=== PATIENT | female | born 1935 | race Caucasian/White ===

== ENCOUNTER 2016-08-10 09:37 | Inpatient (IN) ==
[2016-08-10] MEDS ORDERED: TYLENOL PO PRN (10:58)
[2016-08-10] MEDS ORDERED: ZOFRAN IV PRN (10:58)
[2016-08-10] MEDS ORDERED: DUONEB (A & A) INH PRN (10:58)
--- NOTE | 2016-08-10 11:44 | Diag Imaging Result Document ---
PROCEDURE NAME: CHEST-2 VIEWS - 08/10/2016 CHEST X-RAY, 2 VIEWS: 08/10/2016. COMPARISON: None. FINDINGS: There is cardiomegaly. There are small bilateral pleural effusions. There appears to be some adjacent hazy atelectasis in the lung bases but no significant infiltrates. There is severe vascular disease with calcification of the aorta. No visible compression fractures. IMPRESSION: Cardiomegaly. Small bilateral pleural effusions.
[2016-08-10 12:10] LABS: ALLEN TEST YES; BE 4.8 mmoll (-3.0-3.0); BLOOD TYPE ARTERIAL; DRAW SITE R RADIAL; METHB 1.2 % (0.0-1.5); O2(CT) 13.5 mL/dL (15.0-23.0); PCO2(98.6) 49 mmHg (35-45); PO2(98.6) 69 mmHg (60-100); SAMPLE BLOOD; SAO2 95.3 % (95.0-100.0); THB 10.3 g/dL (11.5-17.4)
[2016-08-10 12:11] LABS: MODALITY CANNULA
--- NOTE | 2016-08-10 12:14 | EKG Report ---
Test Performed on : 08/10/2016 11:24:19 AM Test Reason : CP Blood Pressure : / mmHG Vent. Rate : 125 BPM Atrial Rate : 064 BPM P-R Int : 000 ms QRS Dur : 140 ms QT Int : 364 ms P-R-T Axes : 000 -34 -08 degrees QTc Int : 525 ms Atrial fibrillation. with rapid ventricular response. Left axis deviation Right bundle branch block Abnormal ECG No previous ECGs available Confirmed by Carlota COWAN, Smaan Landa ([id number]) on 08/12/2016 5:31:56 PM
[2016-08-10 15:16] LABS: URINE CULTURE NEEDED? NO; URINE MICRO REVIEW NEEDED? NO; URINE SOURCE CLEAN CATCH
[2016-08-10 15:28] LABS: BILIRUBIN URINE NEGATIVE (NEGATIVE); BLOOD URINE NEGATIVE (NEGATIVE); COLOR YELLOW; GLUCOSE URINE NEGATIVE (NEGATIVE); LEUKOCYTES URINE NEGATIVE (NEGATIVE); NITRITE URINE NEGATIVE (NEGATIVE); PH URINE 5.5; PROTEIN URINE NEGATIVE (NEGATIVE); SP GRAVITY URINE 1.019; TURBIDITY URINE CLEAR (CLEAR); UROBILINOGEN URINE NORMAL (NORMAL)
[2016-08-10 15:29] LABS: UR EPITHELIAL CELLS <10 /HPF (<10); URINE BACTERIA NEGATIVE /HPF; URINE RBC <10 /HPF (<10); URINE WBC <10 /HPF (<10)
[2016-08-10 15:31] LABS: UR PROT RANDOM 11.2 mg/dL
[2016-08-10 15:33] LABS: MANUAL DIFF NEEDED? NO
[2016-08-10] MEDS: DUONEB (A & A) INH PRN ×2 (15:38→19:58)
[2016-08-10 15:41] LABS: BASO% 0.2 % (0.0-0.8); EOS# 0.05 X1000 (0.0-0.7); EOS% 0.5 % (0.0-10.0); HEMATOCRIT 32.6 % (37.0-47.0); HEMOGLOBIN 10.1 g/dL (12.0-16.0); IMM GRAN# 0.03 X1000 (0.0-0.04); IMM GRAN% 0.3 % (0.0-0.5); LYMPH# 1.27 X1000 (1.2-3.4); LYMPH% 13.1 % (20.5-51.1); MCH 27.3 PG (27-31); MCV 88.1 FL (81-99); MONO# 0.83 X1000 (0.11-0.59); MONO% 8.5 % (1.7-9.3); MPV 10.4 FL (7.4-10.4); NEUT% 77.4 % (42.2-75.2); PLT 238 X1000 (130-400)
[2016-08-10 16:02] LABS: MAGNESIUM 2.2 mg/dL (1.5-2.7)
[2016-08-10 16:06] LABS: ALBUMIN 3.4 g/dL (3.5-5.0); CALCIUM 8.7 mg/dL (8.8-10.2); POTASSIUM 4.8 mmol/L (3.5-5.1); TOTAL BILIRUBIN 0.32 mg/dL (0.20-1.00); TOTAL PROTEIN 5.7 g/dL (6.3-8.3)
--- NOTE | 2016-08-10 17:20 | Diag Imaging Result Document ---
PROCEDURE NAME: US RENAL 2 (RETROPER) COMPLETE - 08/10/2016 COMPARISON: None. FINDINGS: The left kidney is severely hyperechoic and atrophic. The right kidney is normal in echotexture. The right kidney measures 10.5 x 3.6 x 4.3 cm. Cortex measures 9 mm. The left kidney measures 6.7 x 3 x 3.3 cm. Cortex measures 6 mm. Urinary bladder is collapsed. IMPRESSION: 1. Severe atrophy and hyperechogenicity of the left kidney. 2. Normal appearing right kidney.
--- NOTE | 2016-08-10 22:31 | CONSULTATION ---
DATE OF CONSULTATION: 08/10/2016 REASON FOR ADMISSION: Increased work of breathing with dyspnea on exertion and swelling. REASON FOR CONSULT: Is listed as renal failure with increased lower extremity swelling and shortness of breath. CONSULTING PHYSICIAN: Dr. Luca Milton. HISTORY OF PRESENT ILLNESS: Ms Alford is a 81-year-old white female who was not been seen by our service in the past. She has been managed on an outpatient basis by Dr. Milton for many years and she has not had many difficulties. Subsequently in May, patient stated that she started swelling after taking a prednisone for an eye problem. She reportedly swelled up and has not had any improvement. She states that she has slept in her recliner for many years and does not go to bed but she sleeps well. She has recently had an echocardiogram done on 07/30 which indicated mild to moderate pulmonary hypertension with some mitral and tricuspid regurgitation. It did show that she had an ejection fraction of 65%. Patient states that she has not been told she has any kidney problems. She does have some incontinence in the past. She denies any chest pain. Positive for increased shortness of breath with swelling. She remains on O2. She has trouble to breathe for the last several days. She was treated with metolazone over the weekend per Dr. Milton and was seen in his office today for follow up. Subsequently this has not improved her breathing or her swelling, and he has convinced her to come to the hospital for admission and further treatment. Patient states that she is not happy to be here in the hospital at this time. Her family is at the bedside. She does deny any nausea , vomiting, no diarrhea. No chest pain or palpitations. No fever or chills. PAST MEDICAL HISTORY: Positive for hypertension, diabetes mellitus type 2, chronic anemia, hypothyroidism, osteoarthritis and hypercholesterolemia. PREVIOUS SURGICAL HISTORY: Partial hysterectomy. SOCIAL HISTORY: She is . She lives with her spouse. She is a current every day smoker 1 pack per day for 30 pack year. Denies any alcohol or illicit drug use. FAMILY HISTORY: Positive for pancreatic cancer and lung cancer. HEALTH HISTORY: She does state that she does get a flu shot. She had her last colonoscopy in 2009. REVIEW OF SYSTEMS: Times 10 with pertinent positives listed above in the HPI. ALLERGIES: Listed as penicillin. HOME MEDICATIONS: Aldactazide, Flonase, Symbicort, Synthroid, vitamin D3, Xanax , atenolol, glimepiride, albuterol nebulizer, losartan and lovastatin. VITAL SIGNS: Her current vital signs temperature is 98.4 degrees, blood pressure 112/58, heart rate 108, respirations 17, she is currently on 2 L nasal cannula. Her last recorded saturation was 100%. LABS: Comprehensive is still currently pending. We do not have any results back on that. Her white count is 9.71, hemoglobin 10.1, hematocrit 32.6, with a platelet count of 238,000. D-dimer 0.43, TSH 5.50. We have urinalysis that shows trace proteinuria and urine electrolytes but we do not have any comparison per her serum electrolytes. Her ABGs pH 7.4, CO2 49, PO2 69, bicarb 28.6 on 2 L. Chest x-ray shows small bilateral pleural effusions. EKG shows atrial fibrillation with RVR. Heart rate was noted at 108. PHYSICAL EXAMINATION: General: This is a 81-year-old white female. Head of the bed is fully elevated. She is and in mild to moderate distress with increased work of breathing. She remains on O2. Skin: Warm and dry. HEENT: Normocephalic, atraumatic. Conjunctiva is pink. She has KRISTIAN. Mucous membranes are moist. Neck: Supple. Trachea midline. No JVD at this level of what she is sitting. Cardiovascular: Slightly irregular rate and rhythm. She remains tachycardic. No extra heart sounds are noted. Respiratory: She continues with increased work of breathing. She has diminished breath sounds. No crackles or wheezes noted. Abdomen: Large, round , soft, nontender, positive bowel sounds. Genitourinary: Not inspected. Patient has void. No I's and O's are recorded at this time. Extremities: She has 2 to 3+ lower extremity edema. This appears to be chronic in the last 2-3 months. Noted pulmonary hypertension on her echocardiogram done on 07/31/2016. Neurological: She is alert and oriented x3. ASSESSMENT AND PLAN: 1. We have been consulted for acute kidney injury. We do not have any labs to look at yet. We have ordered urine electrolytes. We will do a comparison in regards with her FENA score. We do had a renal ultrasound that is currently pending. She has no IV fluids infusing at this time. Again, we are awaiting her labs. 2. Fluid volume overload. Patient has failed outpatient metolazone treatment. She continues to have 3+ lower extremity edema. Head of the bed is elevated 90 degrees. She is requiring oxygenation. We will note that her echocardiogram did show mild to moderate pulmonary hypertension which may indicate that she is starting right-sided heart failure. She may possibly require a Cardiology consult during this hospitalization. 3. Electrolytes, acid-base balance. This is currently pending. 4. Anemia. This is low but stable with no need for intervention at this time. I would like to thank you for allowing us to follow with this patient. Data reviewed, discussed with Sheryl Fuller on 08/10/16. I agree with the above assessment and plan of care. rg Dictated by ASHKAN Suárez for Bora Gonzalez MD cc: ASHKAN Suárez MD Timothy P. Weirich, MD [facility]ERSanjay
[2016-08-11] MEDS: DUONEB (A & A) INH PRN ×5 (03:10→19:38)
[2016-08-11 06:36] LABS: ALBUMIN 3.7 g/dL (3.5-5.0); CALCIUM 8.7 mg/dL (8.8-10.2); POTASSIUM 4.6 mmol/L (3.5-5.1)
--- NOTE | 2016-08-11 07:16 | CONSULTATION ---
DATE OF CONSULTATION: 08/10/2016 REQUESTING PHYSICIAN: Luca Milton MD REASON FOR CONSULTATION: Shortness of breath. HISTORY OF PRESENT ILLNESS: Ms. Alford is a 81-year-old white female with ongoing tobacco use, history of diabetes mellitus, history of obesity, who was admitted to the hospital with a several- day history of increasing shortness of breath. The patient reports she began using a nebulizer 3- 4 weeks ago. The patient reports she has had increased difficulty for approximately 6 weeks. 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 She underwent a temporal artery biopsy to rule out temporal arteritis which was negative. Her steroids have subsequent been discontinued. She continued to have increased weight and increased lower extremity edema. Chest x-ray today revealed bilateral pleural effusions. General lab work reveals renal insufficiency with a creatinine of 2.1. She has undergone ultrasound of the kidney which is pending. PAST MEDICAL HISTORY: 1. Presumptive COPD with ongoing tobacco use. 2. Morbid obesity. 3. Recent new onset blindness as per above. 4. Diabetes mellitus for approximately 15 years. 5. Hypertension. 6. Hypothyroidism. 7. Status post bilateral cataract surgery. 8. History of partial hysterectomy. SOCIAL HISTORY: The patient denies significant alcohol use. Ongoing tobacco use as per above. FAMILY HISTORY: Notable for lung cancer in a father and pancreatic cancer in her mother. REVIEW OF SYSTEMS: As noted in the HPI. PHYSICAL EXAMINATION: General: Reveals an obese, white female, on nasal cannula in no acute distress. HEENT: Pupils are equal and reactive. Formal visual felix were not performed. Oropharynx is clear without overt lesions. Neck: Supple. Chest: Reveals scattered wheezing throughout all lung felix. There is decreased breath sounds in both lung bases. Cardiac: Distant heart sounds. Normal S1, normal S2. Abdomen: Obese and soft without appreciable organomegaly. Extremities: Revealed trace to 1+ peripheral edema. LABORATORIES/DIAGNOSTIC DATA: Chest x-ray reveals generous cardiac silhouette with bilateral pleural effusions. Electrolytes: Sodium 141, potassium 4.8, 4.8 chloride 101, bicarbonate 26, BUN 42, creatinine 2.1. ProBNP is significantly elevated at 14,347. Arterial blood gas on 2 L per nasal cannula reveals pH 7.40, pCO2 of 49, PO2 of 69. White blood count 9.7, hemoglobin 10.1, platelet count 238,000. IMPRESSION: A 81-year-old with ongoing tobacco use with shortness of breath. The patient has wheezing on examination along with decreased breath sounds in both bases. The patient has evidence of heart strain likely related to cor pulmonale with marked increase in proBNP. The patient's dyspnea is most likely due to chronic obstructive pulmonary disease with exacerbation along with bilateral foot pleural effusions and probable fluid overload. This may related to systolic or diastolic heart failure or related to her renal failure. The patient has evidence of chronic hypoxemic respiratory failure along with probable acute hypoxemic respiratory failure. She has not undergone an evaluation for sleep apnea. RECOMMENDATIONS: 1. CT scan of the thorax will be performed to rule out underlying airway obstruction and to gauge degree of pleural effusions. 2. Continue oxygen as needed for saturations less than 90%. 3. Routine bronchodilator therapy. 4. Diuretics as tolerated. 5. Smoking cessation/counseling has been performed. 6. Evaluate for home oxygen at the time of discharge. 7. Recommend outpatient evaluation for sleep apnea. 8. Additional recommendations pending hospital course. cc: MD Luca Gomez MD
[2016-08-11] MEDS ORDERED: SYNTHROID PO SCH (09:00)
--- NOTE | 2016-08-11 09:53 | Diag Imaging Result Document ---
PROCEDURE NAME: CT THORAX W/O CONTRAST - 08/11/2016 CT CHEST WITHOUT CONTRAST: COMPARISON: None available. FINDINGS: There is a moderate-sized right effusion and a small left effusion. There is associated bibasilar atelectasis, and there are infiltrates at both lung bases suggesting edema, perhaps, with superimposed pneumonia in the right clinical scenario. There is a small calcified granuloma at the inferior left upper lobe. There is a tiny 4 mm noncalcified nodule in the right lower lobe superiorly that statistically most likely represents a small noncalcified granuloma or inflammatory nodule given its small size. There is a vaguely nodular density that actually probably represents focal scarring involving the anterior aspect of the left upper lobe on image 25 of series 3 measuring up to 6.2 mm. If clinically warranted, consider CT followup. The central vasculature appears prominent suggesting pulmonary venous congestion. There is [id number] cardiomegaly. There is extensive aortic atherosclerotic calcification as well as coronary artery calcification. There is a small calcified subcarinal lymph node indicating prior granulomatous disease. No significant mediastinal fluid collections are appreciated. Limited views of the upper abdomen reveal a large left adrenal mass measuring up to 3.1 x 3.0 cm axially. However, it has a density that is highly compatible with an adrenal adenoma. The partially imaged left kidney is somewhat atrophic. IMPRESSION: 1. Bilateral pleural effusions, largest on the right as described. 2. Bibasilar atelectasis as well as bibasilar infiltrates suggesting pulmonary edema, but superimposed pneumonia is possible in the right clinical scenario. 3. Cardiomegaly. 4. Incidental large left adrenal adenoma. 5. Other incidental/nonacute findings detailed above.
--- NOTE | 2016-08-11 11:22 | PROGRESS NOTE ---
DATE: 08/11/2016 SUBJECTIVE: The patient voices no new complaints. She still has mild to moderate shortness of breath. She denies any palpitations. We discussed the findings from her labs and other studies as well as consult notes. She expressed understanding. PHYSICAL EXAMINATION: Vital Signs: Temperature 98.2 degrees, pulse rate is 114, blood pressure 107/61. Physical Exam: The patient has generally poor air movement but is in no respiratory distress. The crackles and wheezing heard in the bases was not present today. The patient appears to be in an irregular tachycardia at just over 100 beats per minute. LABORATORY: Arterial blood gas showed mild to moderate hypoxemia. Creatinine is 1.9. ProBNP was 00246. TSH was slightly elevated at 5.5. ASSESSMENT AND PLAN: 1. The patient's respiratory status is slightly improved clinically. She had a CT scan without contrast of the thorax this morning. The results on that are pending. Dr. Snowden's consult notes were reviewed. 2. The patient's renal function has been evaluated by Dr. Gonzalez's team. Her creatinine is 1.9. She apparently has an atrophic kidney on 1 side which we did not know about previously. 3. The patient's initial EKG in the hospital showed atrial fibrillation with RVR and she may likely still be in atrial fibrillation. I think it is of note that the other times when I have examined the patient in the office I did not hear anything like atrial fibrillation although her pulse rate was usually in the 90s to 100 range. Due to her breathlessness I did not appreciate that her heart rhythm was irregular at all on previous examinations. I have consulted Dr. Eben Monsivais to review her echocardiogram from 07/30 and to suggest treatment for diuresis, rate control and other parameters which will optimize her cardiovascular function. 4. The patient states that she quit smoking a few days ago and has been fine with that. 5. We are monitoring the patient's blood sugar. 6. We will review home medications and incorporate those which we feel are appropriate. cc: Luca Milton MD
[2016-08-11] MEDS: AMARYL PO SCH (11:23)
[2016-08-11] MEDS ORDERED: CARDIZEM IV ONE (11:54)
[2016-08-11] MEDS: LANOXIN IV SCH ×2 (12:29→14:12)
[2016-08-11] MEDS: LASIX IV SCH ×2 (12:29→23:21)
[2016-08-11] MEDS: LOPRESSOR PO SCH ×2 (12:30→20:59)
[2016-08-11] MEDS: LOVENOX SUBQ SCH (12:30)
--- NOTE | 2016-08-11 13:32 | EKG Report ---
Test Performed on : 08/11/2016 12:39:14 PM Test Reason : dyspnea Blood Pressure : / mmHG Vent. Rate : 132 BPM Atrial Rate : 208 BPM P-R Int : 000 ms QRS Dur : 142 ms QT Int : 350 ms P-R-T Axes : 000 -35 -02 degrees QTc Int : 518 ms Atrial fibrillation. with rapid ventricular response. Left axis deviation Right bundle branch block Abnormal ECG When compared with ECG of 10-AUG-2016 11:24, (Unconfirmed) No significant change was found Confirmed by Carlota COWAN, Saman Landa ([id number]) on 08/12/2016 5:48:04 PM
[2016-08-11] MEDS: CARDIZEM 100 MG/NS 100 MG/100 ML IVPB IV SCH ×2 (14:46→23:21)
--- NOTE | 2016-08-11 16:27 | PROGRESS NOTE ---
DATE: 08/11/2016 SUBJECTIVE: Ms. Alford is currently sitting up in a chair. She states that she is feeling much better than yesterday. She is concerned that everybody is addressing other things for her care other than her swelling which she feels is the most uncomfortable. She does deny chest pain or increased work of breathing. OBJECTIVE: Her most recent vital signs are temperature 98.2 degrees, blood pressure 107/61, heart rate 114, respirations 14. She is on 2 L nasal cannula. Her last recorded saturation is noted at 96%. She has had 300 in. She has had 0 recorded out though she states that she has been voiding. Most recent labs: Sodium 138, potassium 4.6, chloride 100, CO2 26. BUN 41, creatinine 1.9, glucose 118. Anion gap 12. Calcium 8.7, phosphorus 4.4, albumin 3.7. White count 9.7, hemoglobin 10.1, hematocrit 32.6, with a platelet count of 238,000. At as mentioned previously her TSH is 5.5 on admission. Her ABGs pH 7.74, CO2 49, PO2 69, bicarb 28.6. Renal ultrasound again indicates right kidney measuring 10.5, with the left measuring 6.7. She has a FENa score of 1.98%. We had found previous labs that had been sent to our office per Dr. Milton's office with a baseline creatinine of 1.6 in April 2016. PHYSICAL EXAMINATION: General: This is a 81-year-old, white female. She is currently resting in a chair. She is in no acute distress though she does continue somewhat tachypneic. Skin: Warm and dry. HEENT: Normocephalic, atraumatic. Conjunctivae pale. She has KRISTIAN. Her mucous membranes are moist. Neck: Supple. Trachea midline. No JVD. Cardiovascular : Irregular rate and rhythm. She remains slightly tachycardic though she states she feels no palpitations. Lungs: These are actually improved. She is clear to auscultation anterior. She does have some faint expiratory wheezes posteriorly. She remains on O2. Equal excursion. Abdomen: Large, round, obese, soft, nontender. Positive bowel sounds. Genitourinary: Not inspected. Patient states that she has been getting up to the bathroom to void. We have requested that she keep an accurate I and O. Extremities: She continues with 2 to 3+ lower extremity edema. No clubbing or cyanosis. Integumentary: No rashes or lesions are noted. Neurological: Alert and oriented x3. ASSESSMENT AND PLAN: 1. Acute kidney injury on chronic kidney disease stage 3. It is noted patient' s baseline creatinine is 1.6 as of April 2016. Her creatinine has improved since her hospitalization. It is now down to 1.9. US with small nonfunctional right kidney and marginally small left (10cm). Likely CKD from vascular disease with overlying IRA from prerenal factors ( cardiac decompensation). rg 2. Electrolytes remain stable. Acid-base balance. This is stable. 3. Anemia. This remains stable. 4. Fluid volume overload. We have read Dr. Snowden's consult and we appreciate his input. Consider the patient may have sleep apnea with a scheduled possible outpatient workup. 5. Atrial fibrillation. Dr. Rabago is now following. This was found on EKG subsequently. As noted she has pulmonary hypertension on a previous echocardiogram which may be contributing to her fluid volume overload also. I would to thank you for allowing us to follow with this patient. Seen, data reviewed, discussed with Sheryl Fuller on 08/11/16. I agree with the above assessment and plan of care. rg Dictated by ASHKAN Suárez for Bora Gonzalez MD cc: ASHKAN Suárez MD Timothy P. Weirich, MD [facility]anjay
--- NOTE | 2016-08-11 17:08 | CONSULTATION ---
DATE OF CONSULTATION: 08/11/2016 CHIEF COMPLAINT: Irregular heart beat and shortness of breath. HISTORY OF PRESENT ILLNESS: Ms. Alford is a 81-year-old female patient of Dr. Milton who stated that for the past 2 months she has been experiencing increasing swelling of her lower extremities lately associated with increasing exertional dyspnea. The patient went on to have a 2D echocardiogram on 07/31/2016. At that the time of that echocardiogram according to my own review of the study she appeared to be already in atrial fibrillation. Dr. Milton put her on some extra doses of diuretics to try to decrease her peripheral edema, however this did not work. She continued to be short of breath and she ended up being admitted to the hospital yesterday, 08/10/2016. The patient had a CT scan of the chest obtained yesterday that showed extensive bilateral pleural effusions with the largest on the right. There are bibasilar atelectases and bibasilar infiltrates suggesting pulmonary edema. She has cardiomegaly. She has extensive aortic calcification almost like a porcelain aorta at the level of the arch. She also has extensive coronary artery calcification. Additional findings include blood work that shows a proBNP of 14,340. Her BUN and creatinine were elevated at 42 and 2.1. Sodium and potassium were normal. Her pO2 on 2 L nasal cannula is 69, pCO2 is 49, and pH is 7.40. Hemoglobin is 7.1. The patient has been admitted because of the physical findings of congestive heart failure. In addition, they noted an irregular pulse and they did an EKG at 11:24 a.m. on 08/10/2016 that shows atrial fibrillation with a rapid response rate of 125, right bundle branch block, and a left anterior fascicular block. The patient has atrial fibrillation which is of new onset. She denies having chest pain. She denies having palpitations or syncope. She only admits to the swelling and the progressive dyspnea. She says that she sleeps on a reclining chair and she probably snores. PAST MEDICAL HISTORY: Her past history is positive for hypertension for a long time and diabetes mellitus type 2. She is morbidly obese with a BMI of 40.1. She has hypothyroidism, hyperlipidemia, chronic anemia, and osteoarthritis of the back and legs. PAST SURGICAL HISTORY: She has had a partial hysterectomy. SOCIAL HISTORY: She is and lives in her home. She has 3 grown-up children. She has been a smoker of half a pack to 1 pack a day of cigarettes for many years. She smoked her last on this past Wednesday. FAMILY HISTORY: Pancreatic cancer and lung cancer. HOME MEDICATIONS: Include lovastatin 40 mg at bedtime, losartan 50 mg daily, ipratropium albuterol 3 mL twice a day, glimepiride 4 or 5 mg daily, atenolol 100 mg daily, alprazolam at bedtime, Cholecalciferol 1,000 units daily, levothyroxine 1 tablet 5 days a week , fluticasone, and spironolactone HCTZ 25-25 daily. ALLERGIES: Penicillin. REVIEW OF SYSTEMS: The patient has poor functional capacity. She is chronically tired. She has been getting more short of breath lately. More swelling lately. No chest pain. PHYSICAL EXAMINATION: VITAL SIGNS: Blood pressure is 113/74, pulse 125, temperature 97.3, and respirations 22. GENERAL: She is obese, alert, awake, and in no distress. HEENT: No obvious jugular venous distention. No cervical bruits. RESPIRATORY: The chest shows markedly diminished breath sounds bilaterally with dullness to percussion at both bases. Some occasional scattered rales noted. CARDIOVASCULAR: Heart sounds are slightly irregularly irregular and distant. No gallop or murmur is noted. GASTROINTESTINAL: The abdomen is obese and nontender. No masses or hepatomegaly. No hernia. EXTREMITIES: The extremities show 2+ edema bilaterally with markedly diminished pulses. No lesions or rash noted. NEUROLOGICAL: She moves all extremities and follows commands. She has no obvious deficits. IMPRESSION: 1. Patient presenting with congestive heart failure. This is probably diastolic heart failure, chronic with acute component. Her echocardiogram dated 07/31/2016 showed a preserved ejection fraction in the range of 65%. 2. Patient probably has significant coronary artery disease based on extensive coronary calcification noted on the CT of the chest. 3. Atrial fibrillation with a rapid response. 4. Acute on chronic renal dysfunction. Of note, the patient has had an ultrasound of the kidneys on 08/10/2016 that shows that her left kidney is severely atrophic and hyperechogenic. The right kidney is normal. 5. She has an incidental finding of an adrenal adenoma. 6. Morbid obesity. 7. Patient is likely carrier of sleep apnea syndrome. 8. Diabetes mellitus type 2. 9. Long-term tobacco user. RECOMMENDATIONS: In addition to advising the patient to quit smoking immediately we will suggest to move her to [facility] for IV Cardizem, IV or oral digoxin, low dose metoprolol by mouth, and IV diuretics. The patient is going to need aggressive diuresis to return her to a euvolemic state. Further advice will be forthcoming. Thank you again for the opportunity to participate in her evaluation. cc: MD Luca Topete MD [facility]
[2016-08-11] MEDS: MEVACOR PO SCH (20:59)
[2016-08-11] MEDS: XANAX PO SCH (20:59)
[2016-08-12] MEDS: LOPRESSOR PO SCH ×3 (03:09→17:40)
[2016-08-12] MEDS: DUONEB (A & A) INH PRN ×4 (03:39→15:30)
[2016-08-12] MEDS: SYNTHROID PO SCH (06:10)
[2016-08-12 06:35] LABS: ALBUMIN 3.6 g/dL (3.5-5.0); CALCIUM 9.1 mg/dL (8.8-10.2); POTASSIUM 4.2 mmol/L (3.5-5.1)
--- NOTE | 2016-08-12 07:30 | Diag Imaging Result Document ---
PROCEDURE NAME: HEAD W/O CONTRAST - 08/12/2016 CT BRAIN WITHOUT CONTRAST: FINDINGS: Mildly depressed left nasal fracture. Small frontal scalp soft tissue swelling. No parenchymal hemorrhage. No epidural or subdural hematoma. No subarachnoid hemorrhage. No skull fracture. No hydrocephalus. No mass identified on this noncontrasted exam. No sinus opacification. IMPRESSION: 1. Mild frontal soft tissue swelling with a left nasal fracture. Age indeterminate. 2. No intracranial injury. A preliminary report was given at 5:23 a.m.
[2016-08-12] MEDS: LANOXIN PO SCH (09:23)
[2016-08-12] MEDS: AMARYL PO SCH (09:23)
--- NOTE | 2016-08-12 09:27 | PROGRESS NOTE ---
DATE: 08/12/2016 SUBJECTIVE: The patient states that she lost a lot of fluids yesterday. She states that she had 2 incontinent voids which were not recorded. She states that her swelling is going down and her breathing is a little bit better. The patient fell yesterday trying to hurry and get to the bathroom. According to the CT of the head, she had a nasal fracture on the left side, but no other intracranial injury. OBJECTIVE: Vital Signs: 97.7, pulse rate is 110, blood pressure 132/53. General: The patient has generally poor air movement. There is no wheezing, slightly decreased breath sounds in the bases. Cardiovascular exam: Reveals an irregularly irregular rhythm at approximately 100-110 beats per minute. This is confirmed by telemetry. Extremities: The patient still has 2+ edema, but is not as tense as it was upon presentation. Neurologic: Patient is alert, oriented, conversive and appropriate. ASSESSMENT AND PLAN: 1. The patient's diastolic congestive failure and new onset atrial fibrillation are being addressed. We will need to maintain some type of rate control prior to discharge. The patient is on Lovenox. She is being diuresed with IV Lasix and seems to be putting out quite a bit of urine. 2. Patient's chronic obstructive pulmonary disease is at baseline and stable. We will continue present smoking cessation, which hopefully will stick in her case. 3. The patient's single functioning kidney and chronic renal insufficiency are stable with a creatinine of 2.0 after diuresis. We will continue to monitor this closely. 4. The patient's nasal fracture and fall are noted and we will continue to observe in this capacity. cc: Luca Milton MD
[2016-08-12] MEDS: LASIX IV SCH ×2 (12:25→23:47)
[2016-08-12] MEDS: LOVENOX SUBQ SCH (12:25)
--- NOTE | 2016-08-12 13:31 | PROGRESS NOTE ---
DATE: 08/12/2016 SUBJECTIVE: Ms. Alford is resting quietly in bed. She continues to complain of some swelling though she states that she is feeling just slightly better. She is now in the [facility] being monitored for an irregular heart pattern. OBJECTIVE: Her most recent vital signs, temperature 97.6 degrees, last blood pressure 133/64, heart rate 102, respirations are 20. She is currently on 2 L nasal cannula. Last recorded saturation is 95%. She has had 674 in, she has had 1500 out void. LABS: Sodium 138, potassium 4.2, chloride 95, CO2 3.3 BUN 42, creatinine 2, glucose 83. Her anion gap is 10, calcium 9.1, phosphorus 4.8, albumin 3.6, magnesium of 2. Previous hemoglobin 10.1 on the . PHYSICAL EXAMINATION: General: This is a 81-year-old, white female. She is currently resting in bed. Head of the bed was completely elevated at 90 degrees. Skin: Warm and dry. HEENT: Normocephalic, atraumatic. Conjunctivae pale. She has KRISTIAN. Mucous membranes moist. Neck: Supple. Trachea midline. No JVD. Cardiovascular: Irregular rate and rhythm. She is slightly tachycardic from 80s to low 100s today on her monitor. Lungs: Clear to auscultation anteriorly. Equal excursion. Abdomen: Large, round, soft, nontender. Positive bowel sounds. Genitourinary: Not inspected. Patient is voiding adequate amount. Extremities: She continues with 2+ lower extremity edema. No clubbing or cyanosis. Integumentary: No rashes or lesions evident. Neurological: Alert and oriented x3. ASSESSMENT AND PLAN: 1. Acute kidney injury on chronic kidney disease stage 4 with a baseline creatinine of 1.6. Patient is currently being monitored for irregular heart pattern. She is on diuretics. Her creatinine is remaining stable. We will continue to monitor. 2. Electrolytes and acid-base balance. These remain stable. 3. Anemia. This remains low but stable. 4. Fluid volume overload. She is being monitored with diuretic therapy by Cardiology. 5. Atrial fibrillation. Again she is on monitor on the [facility] with a Cardizem drip. I would like to thank you for allowing us to follow with this patient. Seen, data reviewed, discussed with Sheryl Fuller on 08/12/16. I agree with the above assessment and plan of care. rg Dictated by ASHKAN Suárez for Bora Gonzalez MD cc: ASHKAN Suárez MD Timothy P. Weirich, MD [facility]
[2016-08-12] MEDS: CARDIZEM 100 MG/NS 100 MG/100 ML IVPB IV SCH ×3 (17:39→19:15)
[2016-08-12] MEDS: CARDIZEM PO SCH ×3 (17:40→21:46)
--- NOTE | 2016-08-12 18:27 | PROGRESS NOTE ---
DATE: 08/12/2016 CHIEF COMPLAINT: Swelling, shortness of breath, irregular heartbeat. SUBJECTIVE: Ms. Alford is still swollen, still somewhat short of breath, not as bad. Her heart rate appears to be better controlled on present doses of diltiazem and beta-blockers as well as digoxin. OBJECTIVE: Vital signs: Temperature 97.8, pulse 71 and going up to 100, respirations 21, blood pressure 127/64. General: She is awake, alert, in good mood. HEENT: Unremarkable. Chest: Shows slight wheezes. Diminished breath sounds diffusely. Cardiac: Heart sounds are irregularly irregular without gallop or murmur. Abdomen: Obese. Extremities: Showed 1+ to 2+ edema. Neurologic: Awake, alert and oriented x3. Moves four extremities. LABORATORY DATA: Sodium 138, potassium 4.2, BUN 42, creatinine 2.0. IMPRESSION: 1. Patient who presented with atrial fibrillation with rapid response. 2. Congestive heart failure, diastolic dysfunction. 3. Suspected significant coronary heart disease, calcification of coronary arteries noted on CT of the chest. 4. Morbid obesity. 5. Acute on chronic renal insufficiency. RECOMMENDATIONS: At this point in time, we will continue with IV Lasix at 80 mg every 12 hours. We will put her on diltiazem 30 every 6 hours. Continue digoxin 0.125 daily. We will increase her metoprolol to 25 every 8 hours. We will see how she does over the next couple of days. Consideration may be given at performing a transesophageal echocardiogram on her and a cardioversion maybe in 3 or 4 days once she is more euvolemic and, once we get her into sinus rhythm, consider long-term anticoagulation. At this point in time, she is already on enoxaparin. I would suggest to perhaps start low-dose amiodarone in anticipation of possible cardioversion at some point. Further intervention will depend on her clinical course. cc: MD Luca Topete MD
[2016-08-12] MEDS: MEVACOR PO SCH (21:46)
[2016-08-12] MEDS: XANAX PO SCH (21:46)
[2016-08-12] MEDS: CORDARONE PO SCH (21:46)
[2016-08-13] MEDS: LOPRESSOR PO SCH ×3 (01:55→20:54)
[2016-08-13] MEDS: CARDIZEM PO SCH ×4 (01:55→20:54)
[2016-08-13 05:43] LABS: ALBUMIN 3.4 g/dL (3.5-5.0); CALCIUM 8.9 mg/dL (8.8-10.2)
[2016-08-13] MEDS: SYNTHROID PO SCH (06:06)
[2016-08-13] MEDS: CARDIZEM 100 MG/NS 100 MG/100 ML IVPB IV SCH ×2 (06:06→15:44)
[2016-08-13] MEDS: DUONEB (A & A) INH PRN (07:47)
[2016-08-13] MEDS: LANOXIN PO SCH (09:15)
[2016-08-13] MEDS: CORDARONE PO SCH ×2 (09:15→20:54)
[2016-08-13] MEDS: AMARYL PO SCH (09:15)
[2016-08-13] MEDS: LASIX IV SCH ×2 (09:16→20:54)
--- NOTE | 2016-08-13 11:31 | PROGRESS NOTE ---
DATE: 08/13/2016 SUBJECTIVE: Ms. Alford is resting quietly on the side of the bed. Her legs are dependent. She is reading the paper. She denies chest pain or increased work of breathing. She thinks that her swelling to her lower extremities is doing better. OBJECTIVE: Vital Signs: Her most recent vital signs are temperature is 98.4 degrees, blood pressure 137/40, heart rate 84, respirations 20. She is on 2 L nasal cannula. Last recorded saturation 93%. LABS: Sodium 138, potassium 4, chloride 90, CO2 37, BUN 41, creatinine 2. Glucose 112. Her anion gap is 11. Her calcium is 8.9, phosphorus 5, albumin 3.4. Previous hemoglobin 10.1 on the . Patient shows a C-reactive protein claudication of 12.5 on yesterday's lab results. PHYSICAL EXAMINATION: General: This is a 81-year-old, white female. She is in no acute distress. Skin: Warm and dry. HEENT: Normocephalic, atraumatic. Conjunctiva is pale. She has pupils equal, round, and reactive to light. Mucous membranes moist. Neck: Supple. Trachea midline. No jugular venous distention. Cardiovascular: Regular rate and rhythm. She is with irregular rate and rhythm. She remains slightly tachycardic. She is without murmur or gallop. Lungs: Clear to auscultation anteriorly. Equal excursion, with faint bibasilar posterior crackles. Abdomen: Large, round, soft, nontender. Positive bowel sounds. Extremities: Has 2+ edema. She continues with redness noted to the lower extremities. No rashes or lesions evident. Neurological: Alert and oriented x3. ASSESSMENT AND PLAN: 1. Acute kidney injury on chronic kidney disease, stage 4, with a baseline creatinine of 1.6. Overlying rise in creatinine related to decompensated cardiac disease. Labs are stable as she is diuresing. rg 2. Electrolytes and acid-base balance. These are stable. 3. Anemia. This remains low, but stable. 4. Fluid volume overload. Patient continues to receive diuretic therapy. 5. Atrial fibrillation. She continues on Cardizem drip. Cardiology following. I would to thank you for allowing us to follow with this patient. Seen, data reviewed, discussed with Sheryl Fuller on 08/13/16. I agree with the above assessment and plan of care. rg Dictated by ASHKAN Suárez for Bora Gonzalez MD cc: ASHKAN Suárez MD [facility] Weirich, MD [facility]an[facility]
--- NOTE | 2016-08-13 12:20 | PROGRESS NOTE ---
DATE: 08/13/2016 SUBJECTIVE: The patient is awake and sitting on the edge of the bed. She has no new complaints other than the frequency of urination that she has been experiencing. OBJECTIVE: Vital Signs: 98.4, 84, 137/40, 93% saturated on 2L nasal cannula. Fluid Balance: - 2126 with incontinent voids noted. General: The patient's breathing is smoother. She has some faint crackles in the left base with poor to fair air movement, which is her baseline. She is not wheezing. Cardiovascular: Irregular with overall decreased heart rate. recreation center director shows atrial flutter with atrial fibrillation and generally lower heart rates than yesterday. LABORATORY: Creatinine is 2.0. ASSESSMENT AND PLAN: 1. The patient's diastolic failure in the face of new onset of atrial fibrillation is being treated by Dr. Monsivais. Her heart rate is down significantly and it appears she is having more runs of a much better tolerated atrial flutter rhythm. We will continue amiodarone and diltiazem. Hopefully, she can be weaned off drips soon, and may be home by this weekend at some point. 2. The patient's chronic obstructive pulmonary disease is stable. 3. Kidney function is stable at 2.0. We will continue to monitor this through her period of diuresis. 4. Fall with nasal fracture noted. cc: Luca Milton MD
[2016-08-13] MEDS: LOVENOX SUBQ SCH (14:04)
[2016-08-13] MEDS: MEVACOR PO SCH (20:54)
[2016-08-13] MEDS: XANAX PO SCH (23:35)
[2016-08-14] MEDS: CARDIZEM PO SCH ×4 (02:57→20:24)
[2016-08-14] MEDS: CARDIZEM 100 MG/NS 100 MG/100 ML IVPB IV SCH (03:32)
[2016-08-14 05:50] LABS: ALBUMIN 3.8 g/dL (3.5-5.0); CALCIUM 9.4 mg/dL (8.8-10.2); MAGNESIUM 1.8 mg/dL (1.5-2.7)
[2016-08-14] MEDS: SYNTHROID PO SCH (06:07)
[2016-08-14] MEDS: DUONEB (A & A) INH PRN ×2 (07:52→21:15)
--- NOTE | 2016-08-14 08:29 | Diag Imaging Result Document ---
PROCEDURE NAME: CHEST-PORTABLE - 08/14/2016 SINGLE FRONTAL RADIOGRAPH OF THE CHEST: COMPARISON: 08/10/2016. FINDINGS: Small bilateral pleural effusions are again noted. They are essentially stable or, perhaps, marginally improved. Adjacent atelectasis and/or infiltrates at the lung bases appear to have improved, at least on the right. No new consolidations identified. Cardiac silhouette is stable. IMPRESSION: Suggestion of marginal improvement of the small pleural effusions and bibasilar atelectasis and/or infiltrate.
[2016-08-14] MEDS: LOPRESSOR PO SCH ×2 (09:17→20:24)
[2016-08-14] MEDS: AMARYL PO SCH (09:17)
[2016-08-14] MEDS: CORDARONE PO SCH ×2 (09:17→20:24)
[2016-08-14] MEDS: LASIX IV SCH ×2 (09:18→20:24)
[2016-08-14] MEDS ORDERED: DULCOLAX PO ONE (10:35)
[2016-08-14] MEDS ORDERED: DULCOLAX PR PRN (10:35)
[2016-08-14] MEDS: AFRIN NASAL SPRAY NAS SCH (11:12)
--- NOTE | 2016-08-14 11:59 | PROGRESS NOTE ---
DATE: 08/14/2016 SUBJECTIVE: The patient is sitting in bed. She is comfortable. She has no trouble breathing from a respiratory standpoint, although she states that her nose has been stopped up for multiple days and she can get a good breath through the nasal cannula. She also states she has not had a bowel movement since she got to the hospital. We discussed her activity level and I think it is fine for her to walk around in the room or in the halls and she may take her off oxygen for that. PHYSICAL EXAMINATION: Vital Signs: Temperature 97.7, pulse 77, respirations 22, 128/47, 97% saturated on 3 L nasal cannula. Fluid balance reflects positive fluid gain which makes very little sense since the diuretic has not been changed. I would question the validity of the recorded amount. T Lungs: Clear. Fair to average air movement. No wheezing. Extremities: Show decreasing edema. Cardiovascular: Irregularly irregular, approximately 80 beats per minute. Neurological: She is alert, oriented, conversive, and appropriate. LABORATORIES: Creatinine is still 2.0. ASSESSMENT AND PLAN: 1. The patient's atrial fibrillation and respiratory status has improved dramatically. I think her overall plan is to continue her anti rhythmic and rate control agents as well as diuresis and then hopefully on Wednesday we can have a GISEL followed by DC cardioversion per cardiology. We will continue her Lovenox at the present time. 2. We will write orders to effect a bowel movement. 3. I will plan to add oxymetazoline nasal spray so that she can take a better breath. 4. Patient's COPD is stable. cc: Luca Milton MD
[2016-08-14] MEDS: LOVENOX SUBQ SCH (13:59)
--- NOTE | 2016-08-14 14:26 | PROGRESS NOTE ---
DATE: 08/14/2016 SUBJECTIVE: Patient resting in bed. She states that she has been ambulatory. She is in no acute distress. OBJECTIVE: Vital Signs: Temperature 97.7 degrees, pulse 77, respiratory 22, blood pressure 128/47. Intake 1.3 L. Output 1 L plus voided. PHYSICAL EXAMINATION: General: Elderly female, resting in bed. No acute distress. HEENT: Normocephalic, atraumatic. Oral mucosa moist. Neck: Supple. No JVD. Cardiovascular: Regular rate and rhythm with a systolic murmur. Pulmonary: Equal excursion. She is on O2 supplementation via nasal cannula. She has no increased work of breathing and is clear. Abdomen: Soft, with positive bowel sounds. : She is voiding. Extremities: She has trace pretibial edema. No clubbing, cyanosis. She is moving all extremities and is ambulatory. Integumentary: Skin is pale, warm and dry. LAB DATA: Sodium 136, potassium 4.0, CO2 40, BUN 42, creatinine 2.0, albumin 3.8. ASSESSMENT AND PLAN: 1. Acute kidney injury. Creatinine is essentially unchanged over the course of the hospitalization secondary to her chronic diuresis needs. She has been transitioned from IV to p.o. We would expect to start seeing some improvement with her creatinine thereafter. 2. Electrolytes, acid-base balance. These have been stable. She is slightly alkalotic, expected. 3. Fluid volume. She is on appropriate therapy. 4. Atrial fibrillation. Followed by primary. Seen, data reviewed, discussed with Velvet Lopez on 08/14/16. I agree with the above assessment and plan of care. rg Dictated by ASHKAN Johnson for Bora Gonzalez MD cc: MD Luca Bassett MD [facility]
[2016-08-14] MEDS: MEVACOR PO SCH (20:24)
[2016-08-14] MEDS: XANAX PO SCH (23:10)
[2016-08-15] MEDS: AFRIN NASAL SPRAY NAS SCH ×2 (05:04→14:18)
[2016-08-15] MEDS: SYNTHROID PO SCH (06:24)
[2016-08-15 07:26] LABS: ALBUMIN 3.5 g/dL (3.5-5.0); CALCIUM 9.2 mg/dL (8.8-10.2); POTASSIUM 4.6 mmol/L (3.5-5.1)
[2016-08-15] MEDS: DUONEB (A & A) INH PRN ×4 (08:05→19:16)
[2016-08-15] MEDS: AMARYL PO SCH (08:30)
[2016-08-15] MEDS: CORDARONE PO SCH ×2 (08:30→21:12)
[2016-08-15] MEDS: LOPRESSOR PO SCH ×2 (08:31→21:12)
[2016-08-15] MEDS: CARDIZEM CD PO SCH (08:31)
--- NOTE | 2016-08-15 08:53 | PROGRESS NOTE ---
DATE: 08/15/2016 SUBJECTIVE: The patient was transferred to the floor yesterday. She did not get up and move around much. She states that she got a little bit wheezy overnight and had to have a breathing treatment. She states her nose is still stopped up. She has theorized that an old injury to her nose has been exacerbated by a recent fall and nasal fracture, and that is one of the reasons why she is not able to move air well through her nose. Clinically, I think the oxymetazoline actually did help her. OBJECTIVE: Vital Signs: 97.3, 75, 25, 123/65. Fluid balance: Fluid balance indicates a slight negative fluid balance, although I find it hard to believe that those numbers are reflective of the total ins and outs throughout the day. She did have a bowel movement. General: On physical exam, the patient has faint expiratory wheezes on the right side with baseline air movement. She is in no distress. Cardiovascular: Irregularly irregular, approximately 80 beats per minute. Peripheral edema is stable, if not reduced. Neurologic: The patient is alert, oriented, conversive and appropriate. ENT: It is noted the patient has developed worsening ecchymosis around the eyes at the site of her nasal fracture, most likely exacerbated by her Lovenox therapy. LABORATORY: BUN is 50, creatinine 2.3, both elevated. Blood sugar is 132. ASSESSMENT AND PLAN: 1. The patient has atrial fibrillation with diastolic acute congestive heart failure, stable. I think we have currently squeezed her kidney about as far as we can, and I plan to hold the Lasix today as a result of elevations of BUN and creatinine. I do not think ins and outs are kept properly. 2. Patient's chronic obstructive pulmonary disease is stable. She is wheezing a little bit more today, but is in no distress. There will be no change in therapy. 3. The patient's diabetes is stable. 4. Ecchymosis with nasal fracture is noted. Overall plan is hopefully for GISEL and cardioversion on Wednesday. There have been no notes left in the computer by cardiology in a few days. I have not had the opportunity to review the paper chart. cc: Luca Milton MD
--- NOTE | 2016-08-15 13:24 | PROGRESS NOTE ---
DATE: 08/15/2016 SUBJECTIVE: Patient resting in bed. No complaints this morning. She is waiting for Wednesday when she will have a GISEL. OBJECTIVE: Vital signs: Temperature 97.3, pulse 75, respiratory rate 25, blood pressure 125/65, intake 400 mL, output 500. General: Elderly female resting in bed. No acute distress. HEENT: Normocephalic, atraumatic. Oral mucosa moist. Neck: Supple. No JVD. Cardiovascular: Regular rate and rhythm. Systolic murmur noted. Pulmonary: Equal excursion. Clear bilaterally. Abdomen: Soft, positive bowel sounds. Genitourinary: She is voiding. Extremities: No pretibial edema. No clubbing or cyanosis. Is ambulatory. Integumentary: Skin is warm and dry. She does have some ecchymosis around her eyes from previous. LABORATORY DATA: Sodium 138, potassium 4.6, CO2 43, BUN 50, creatinine 2.3, calcium 9.2, phosphorus 3.5, albumin 3.5. ASSESSMENT AND PLAN: 1. Acute kidney injury. Creatinine is slightly higher than yesterday. Her intake and output have been somewhat decreased. She continues to have no absolute indications for dialysis. Continue to monitor her over the weekend. 2. Electrolytes/acid-base balance. These are acceptable. She remains alkalotic secondary to previous diuretic use. 3. Fluid volume. She is balanced although her intake and output have been down somewhat overnight. 4. Atrial fibrillation, followed by Primary/Cardiology. She is to have a transesophageal echocardiogram on Wednesday as we understand. Dictated by ASHKAN Johnson for Bora Gonzalez MD Data reviewed, discussed with Kenney on 08/15/16. I agree with the above assessment and plan of care. cc: MD Luca Bassett MD MTDD
[2016-08-15] MEDS: LOVENOX SUBQ SCH (14:18)
--- NOTE | 2016-08-15 18:50 | PROGRESS NOTE ---
DATE: 08/15/2016 SUBJECTIVE: Patient suffered a fall during the night and reportedly has nasal fracture. She denies any dyspnea on supplemental oxygen per nasal cannula. OBJECTIVE: Blood pressure 123/65, heart rate 75 and irregular. Jugular venous distention cannot be appreciated.Chest: Clear to auscultation bilaterally. Cardiac Exam: An irregular rate and rhythm without appreciable murmur or gallop. There is trace pedal edema. LAB DATA: Includes a BUN of 50, creatinine 2.3. IMPRESSION: 1. Atrial fibrillation. 2. Acute diastolic heart failure in setting of acute renal dysfunction. 3. Chronic obstructive pulmonary disease. 4. Diabetes mellitus. PLAN: 1. Continue amiodarone. 2. Tentatively plan for GISEL cardioversion on Wednesday. cc: MD Luca Kim MD
[2016-08-15] MEDS: XANAX PO SCH (21:12)
[2016-08-15] MEDS: MEVACOR PO SCH (21:12)
[2016-08-16] MEDS: DUONEB (A & A) INH PRN ×3 (04:51→19:23)
[2016-08-16] MEDS: AFRIN NASAL SPRAY NAS SCH ×3 (06:04→21:36)
[2016-08-16] MEDS: SYNTHROID PO SCH (06:05)
--- NOTE | 2016-08-16 08:33 | PROGRESS NOTE ---
DATE: 08/16/2016 SUBJECTIVE: The patient has no complaints. She states that despite holding the Lasix, she had pretty frequent urination yesterday. She is not short of breath. The wheezing that she was experiencing yesterday seems to have dissipated. PHYSICAL EXAMINATION: Vital Signs: 97.7, 85, 121/55, respiration rate 18. Fluid balance is not kept correctly. Physical Examination: General: She is a well-developed, well-nourished, white female in no acute distress. She is alert, oriented, conversive, and appropriate. Neck Examination: There is no JVD. Lungs: Clear to auscultation. No wheezing. Cardiovascular: Irregularly irregular at approximately 80 beats per minute. Extremities: Show trace to 1+ pitting edema in the dependent areas, particularly about the ankles. ASSESSMENT AND PLAN: 1. The overall plan has been to perform a transesophageal echocardiogram with cardioversion on Wednesday. The patient is prepared and understands the procedure. If cardiology wishes to proceed, the only possible hindrance is the fact that her left atrial diameter was 4.9 on an echocardiogram performed on the of this month. The larger left atrial diameter may make it more difficult to hold the patient into a sinus rhythm. She continues on amiodarone and we will let cardiology make the final decision on this. 2. The patient's chronic renal insufficiency due to the loss of 1 kidney had shown climbing creatinine levels after fairly aggressive diuresis. We have held her Lasix for yesterday and the creatinine from today is pending. 3. The patient's chronic obstructive pulmonary disease seems to be fairly quiescent. She is breathing well and is in good spirits. 4. The patient's fall with fracture of the nose has resulted in bilateral periorbital ecchymoses which seemed to be stable. The swelling seems to have gone down. I believe that the anticoagulation she is on is markedly affecting the actual spread of the ecchymoses. It is stable otherwise. 5. The patient's diabetes has been reasonably well controlled on daily chemistry profiles. No other changes expected in that regard. cc: Luca Milton MD
[2016-08-16] MEDS: AMARYL PO SCH (08:57)
[2016-08-16] MEDS: CARDIZEM CD PO SCH (08:57)
[2016-08-16] MEDS: LOPRESSOR PO SCH ×2 (08:57→21:31)
[2016-08-16] MEDS: CORDARONE PO SCH ×2 (08:59→21:31)
[2016-08-16] MEDS: LOVENOX SUBQ SCH (13:38)
[2016-08-16] MEDS: XANAX PO SCH (21:31)
[2016-08-16] MEDS: MEVACOR PO SCH (21:31)
[2016-08-17 07:52] LABS: ALBUMIN 3.9 g/dL (3.5-5.0); CALCIUM 9.4 mg/dL (8.8-10.2); POTASSIUM 4.4 mmol/L (3.5-5.1)
[2016-08-17] MEDS: DUONEB (A & A) INH PRN (08:44)
--- NOTE | 2016-08-17 09:01 | Diag Imaging Result Document ---
PROCEDURE NAME: CHEST-2 VIEWS - 08/17/2016 TWO VIEWS OF THE CHEST: FINDINGS: There is worsened subsegmental atelectasis in the left lower lobe compared to 08/14/2016. There is also somewhat worsened left pleural fluid. There continues to be an effusion on the right. The heart size remains enlarged. IMPRESSION: Worsened atelectasis and pleural effusion.
[2016-08-17] MEDS: LASIX IV SCH ×2 (10:25→22:17)
[2016-08-17] MEDS: LOPRESSOR PO SCH ×2 (11:11→22:17)
[2016-08-17] MEDS: CORDARONE PO SCH ×2 (11:11→22:17)
[2016-08-17] MEDS: CARDIZEM CD PO SCH (11:12)
[2016-08-17] MEDS: AMARYL PO SCH (11:12)
[2016-08-17] MEDS: SYNTHROID PO SCH (11:16)
[2016-08-17] MEDS: AFRIN NASAL SPRAY NAS SCH ×2 (11:18→22:18)
--- NOTE | 2016-08-17 11:37 | PROGRESS NOTE ---
DATE: 08/17/2016 SUBJECTIVE: She states she is about the same. She fell over the weekend and has facial bruising and periorbital bruising. No shortness of breath. OBJECTIVE: Vital Signs: Blood pressure 133/57, heart rate 91 respiration 18, afebrile. General: No acute distress. Skin: Warm and dry. Bruising as above. Pupils are equal. Conjunctivae are pink. Heart: Irregular. Lungs: Have equal breath sounds. No crackles or wheezes. Abdomen: Soft and nontender. Bowel sounds are present. Extremities: Have trace edema. No clubbing or cyanosis. LABORATORY DATA: Sodium 139, potassium 4.4, chloride 90, bicarbonate 35, BUN 40, creatinine 1.9. IMPRESSION/PLAN: Chronic kidney disease with overlying acute kidney injury. Prerenal in origin. Her creatinine has improved modestly and her BUN has come down as has her bicarbonate. These findings support improving prerenal state. She is still on IV diuretics and her volume status by exam looks normal. Continue to observe without changes. cc: MD Luca Bassett MD
[2016-08-17 11:56] LABS: HEMATOCRIT 37.3 % (37.0-47.0); HEMOGLOBIN 11.6 g/dL (12.0-16.0); MCH 27.3 PG (27-31); MCHC 31.1 g/dL (33-37); MCV 87.8 FL (81-99); MPV 9.5 FL (7.4-10.4); RBC 4.25 XMIL (4.2-5.4)
[2016-08-17 12:06] LABS: INR 0.97; PROTIME 10.2 Seconds (9.2-11.7); PTT 26.9 Seconds (22.0-36.0)
[2016-08-17] MEDS ORDERED: XYLOCAINE 2% VISCOUS ONE (14:01)
[2016-08-17] MEDS ORDERED: XYLOCAINE 4% TOPICAL SOLUTION ONE (14:01)
[2016-08-17] MEDS ORDERED: SODIUM CHLORIDE 0.9% 20 ML ONE (14:01)
[2016-08-17] MEDS ORDERED: HURRICAINE SPRAY (DOSE) ONE (14:01)
--- NOTE | 2016-08-17 14:06 | PROGRESS NOTE ---
DATE: 08/17/2016 SUBJECTIVE: The patient states she feels like she is having more difficulty breathing today. Review of her MAR shows that her diuretic was held for 2 days instead of a single 24 hour period, which has likely resulted in some fluid reaccumulation and worsening of her breathing status. She denies any chest pain or palpitations. OBJECTIVE: Vital Signs: 97.6, 90, 18, 133/57, 97% saturated on 2 L nasal cannula. Lungs: On physical exam, patient has bilateral expiratory wheezes with increased work of breathing compared to previous days. She has slight decrease in breath sounds in the base of her right lung. Extremities: Show trace peripheral edema, but overall, not much change in overall fluid status. LABORATORIES: Hematocrit 37.3, BUN 40, creatinine 1.9. Blood sugar 129. ASSESSMENT AND PLAN: 1. The patient's atrial fibrillation with congestive failure and diastolic dysfunction. He is being followed by cardiology. The overall plan was for transesophageal echocardiogram and cardioversion today. She had an n.p.o. sign on the door, but I did not see any order specifically for that procedure to be done. We will await Cardiology's decision on that. 2. Patient's chronic obstructive pulmonary disease seems to have flared up again today, likely exacerbated by some fluid reaccumulation. She has been started back on her diuretic. She is given albuterol treatment this morning. We will continue to follow this along. 3. The patient's diabetes is stable. 4. Hypertension is well controlled. 5. The patient's chronic renal insufficiency on her single kidney seems to be stabilized. Dr. Gonzalez is following. cc: Luca Milton MD
[2016-08-17] MEDS ORDERED: NS 1,000 ML ONE (14:24)
[2016-08-17] MEDS ORDERED: CLAVE ANES SET 100 IN 11965 ONE (14:24)
[2016-08-17] MEDS: LOVENOX SUBQ SCH (15:11)
[2016-08-17] MEDS ORDERED: DIPRIVAN 1% ONE (15:28)
[2016-08-17] MEDS ORDERED: XYLOCAINE-MPF 2% ONE (15:43)
--- NOTE | 2016-08-17 18:47 | CARDIAC CATH REPORT ---
DATE: 08/17/2016 PROCEDURE: Direct current cardioversion procedure. INDICATION: A 81-year-old female with persistent atrial fibrillation. Cardioversion was recommended. The benefits, risks, complications were discussed. She understood, requested to proceed. Because the duration of the arrhythmia was uncertain, a transesophageal echocardiogram was performed in advance. DESCRIPTION: The patient was brought to the Cardiac Textile Worker. Her throat was anesthetized and then she was given IV propofol. A GISEL was performed to exclude the presence of thrombus. The defibrillation pads were positioned in anteroposterior locations. Once the patient was adequately sedated, she received a single synchronized countershock to the chest cage consisting of 100 tan per second. She converted from atrial fibrillation into sinus rhythm. She woke up from the effects of the anesthetic without any deficits. SUMMARY: Successful cardioversion from atrial fibrillation into sinus rhythm. RECOMMENDATIONS: The patient will continue medical therapy with low-dose amiodarone, beta- mercedes, and Cardizem. She will probably require long-term anticoagulation with either warfarin or a similar drug. The patient tolerated the procedure well. cc: MD Luca Topete MD
--- NOTE | 2016-08-17 19:31 | ECHO REPORT ---
ORDER DATE: 08/17/2016 PROCEDURE: Transesophageal echocardiogram. INDICATION: Patient with persistent atrial fibrillation, is going to undergo cardioversion. DESCRIPTION: The patient was brought to the cardiac rn cardiac cath in the fasting state. Her throat was anesthetized with Hurricaine and viscous lidocaine. She was given IV propofol by the anesthesia services of Dr. Fried. Once the patient was adequately sedated, the esophagus was intubated without difficulty. Multiple views of the cardiac structure were obtained. SUMMARY OF MAIN FINDINGS: The left ventricle shows normal function. Ejection fraction is probably in the order of 55%. No definite wall motion abnormality noted. The right ventricle is mildly enlarged. It shows good function. Both atria are moderately to significantly dilated. The left atrial appendage is well visualized and free of thrombus. It shows decreased velocities in the order of 20-25 cm per second. The interatrial septum is intact. There is no shunt. No patent foramen ovale. Agitated saline was injected. There was no evidence of shunting from right to left. The aortic valve shows some degree of sclerosis of the cusp without stenosis. Color flow mapping of the aortic valve was unremarkable. The aortic root is not dilated. The mitral valve shows a mild to moderate degree of regurgitation. The tricuspid valve also showed a mild degree of regurgitation. The pulmonic valve appears to be normal. The ascending thoracic aorta showed diffuse atherosclerotic plaque without mobile debris or definite ulcerations. No pericardial effusion was noted. SUMMARY: This transesophageal echocardiogram is negative for the presence of thrombus. Cardioversion can be carried out without any greater risk of stroke. cc: MD Luca Topete MD
[2016-08-17] MEDS: MEVACOR PO SCH (22:17)
[2016-08-17] MEDS: XANAX PO SCH (22:17)
[2016-08-18] MEDS: SYNTHROID PO SCH (06:57)
[2016-08-18 07:38] LABS: ALBUMIN 3.9 g/dL (3.5-5.0); CALCIUM 9.8 mg/dL (8.8-10.2); POTASSIUM 3.8 mmol/L (3.5-5.1)
[2016-08-18] MEDS ORDERED: COUMADIN PO ONE (08:25)
[2016-08-18] MEDS: CARDIZEM CD PO SCH (08:39)
[2016-08-18] MEDS: LOPRESSOR PO SCH ×2 (08:40→21:04)
[2016-08-18] MEDS: AMARYL PO SCH (08:40)
[2016-08-18] MEDS: LASIX PO SCH (08:40)
[2016-08-18] MEDS: CORDARONE PO SCH ×2 (08:40→21:03)
[2016-08-18] MEDS: PREDNISONE PO SCH (08:40)
[2016-08-18] MEDS: DUONEB (A & A) INH PRN ×3 (09:03→21:28)
--- NOTE | 2016-08-18 10:42 | PROGRESS NOTE ---
DATE: 08/18/2016 CHIEF COMPLAINT: Shortness of breath, irregular heartbeat. SUBJECTIVE: Ms. Alford underwent cardioversion yesterday successfully. She is still maintaining sinus rhythm. Overall she is feeing better; however, she is still having some cough and some slight wheezing. OBJECTIVE: Blood pressure today is 139/51, temperature 98 degrees, pulse 69, respirations 18. She is awake, alert, in no distress. HEENT shows ecchymotic areas around the eyelids. The patient had fallen 3 or 4 days ago and bumped her forehead. HEENT is unremarkable. Chest shows diffusely diminished breath sounds with slight end expiratory wheezing. Heart sounds are regular and rhythmic. I do not hear any gallop or murmur. Abdomen is obese. Extremities showed some discoloration, probably from vascular disease. Neurologic: Moves all 4 extremities. Follows commands. DIAGNOSTIC DATA: Sodium is 137, potassium 3.8, BUN is 38, creatinine 2.0. IMPRESSION: 1. The patient presented with atrial fibrillation and rapid response. She has been successfully cardioverted to sinus rhythm. 2. Congestive heart failure secondary to diastolic dysfunction. This is clinically better. 3. 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 4. Morbid obesity. 5. Acute on chronic renal insufficiency. 6. The patient probably has peripheral vascular disease. She does indeed have extensive atherosclerotic changes noted on the GISEL at the level of the thoracic aorta. RECOMMENDATIONS: At this point in time, I would suggest to continue present medical therapy as outlined in the MAR. We will go ahead and initiate Warfarin suggested by Dr. Milton. We are going to gradually cut down on her amiodarone to 200 mg twice a day for the next couple of weeks and then just once a day to try to keep her in sinus rhythm. Further advice will be forthcoming. Thank you for the opportunity to participate in her evaluation. cc: MD Luca Topete MD
--- NOTE | 2016-08-18 11:21 | PROGRESS NOTE ---
DATE: 08/18/2016 SUBJECTIVE: The patient states this morning that she is "not breathing is easy as before". She has a mild nonproductive cough and is wheezing. She does not have any palpitations. She does not have any symptoms consistent with orthopnea. VITAL SIGNS: 98, 69, 18, 139/51. PHYSICAL EXAMINATION: HEENT: Patient has bilateral periorbital ecchymoses from her fall and also due to the Lovenox she has been getting. Lungs: Show bilateral end-expiratory wheeze with fair/baseline air movement. General: She is in no distress. Extremities: Marked reduction in peripheral edema since admission. No change from yesterday. Neurologic: The patient is alert, oriented, conversive, and appropriate. LABORATORIES: BUN 38, creatinine 2. ASSESSMENT AND PLAN: 1. The patient underwent successful cardioversion yesterday and appears to be in a sinus rhythm. We will continue amiodarone and diltiazem. I am going to switch her over from Lovenox to Coumadin today. 2. The patient's chronic obstructive pulmonary disease continues to be problematic. I plan to add some prednisone as well as her aerosol treatments. We will monitor that for success. We are hopeful for discharge tomorrow. I have changed the patient's Lasix to 40 mg by mouth daily as a maintenance dose. The patient's BUN and creatinine are stable. We will continue to follow this on an outpatient basis. 1. The patient's diabetes is stable. cc: Luca Milton MD
[2016-08-18] MEDS: AFRIN NASAL SPRAY NAS SCH ×2 (11:39→23:16)
--- NOTE | 2016-08-18 12:18 | PROGRESS NOTE ---
DATE: 08/18/2016 SUBJECTIVE: She underwent transesophageal echocardiogram and cardioversion done yesterday. Eating. Coughing. OBJECTIVE: Vital Signs: Blood pressure 139/51, heart rate 72, respiration 18, afebrile. Intake 20 mL; output 2.6 L. General: On physical exam, no acute distress. Skin: Warm and dry. Eyes: Conjunctivae are pink. Neck: Neck veins are not distended. Heart: Regular. Lungs: Have equal breath sounds with wheezes, a few crackles. Abdomen: Soft, nontender. Bowel sounds are present. Extremities: Have 1+ edema. She has cyanosis of the toes. LABORATORY DATA: Sodium 137, potassium 3.8, chloride 88, bicarbonate 39, BUN 38, creatinine 2.0. IMPRESSION: 1. Acute kidney injury overlying chronic kidney disease. Essentially stable since admission. Good urine output. Volume status is about the same. She has been in negative fluid balance, but still has edema. 2. Wheezing. Chest x-ray performed yesterday morning with atelectasis and effusions. No pulmonary edema described. 3. Electrolytes acceptable. 4. Acid base: Metabolic alkalosis remains. cc: MD Luca Bassett MD
[2016-08-18] MEDS ORDERED: LASIX IV ONE (18:22)
[2016-08-18] MEDS: MEVACOR PO SCH (21:03)
[2016-08-18] MEDS: XANAX PO SCH (23:15)
[2016-08-19] MEDS: SYNTHROID PO SCH (06:37)
[2016-08-19 07:03] LABS: ALBUMIN 3.8 g/dL (3.5-5.0); CALCIUM 9.3 mg/dL (8.8-10.2); POTASSIUM 3.8 mmol/L (3.5-5.1)
[2016-08-19 07:37] VITALS: BP 146/48
--- NOTE | 2016-08-19 08:17 | Diag Imaging Result Document ---
PROCEDURE NAME: CHEST-2 VIEWS - 08/19/2016 FRONTAL AND LATERAL CHEST, TWO VIEWS: COMPARISON: 08/17/2016. FINDINGS: The lungs are hyperexpanded. There is an increased AP diameter to the chest. The heart remains enlarged. There are small bilateral pleural effusions with basilar atelectasis. The patient has mild scoliosis. The overall appearance of the chest is unchanged from that of the prior exam. IMPRESSION: Stable chest.
[2016-08-19] MEDS: CARDIZEM CD PO SCH (09:54)
[2016-08-19] MEDS: CORDARONE PO SCH (09:54)
[2016-08-19] MEDS: LASIX PO SCH (09:54)
[2016-08-19] MEDS: AMARYL PO SCH (09:55)
[2016-08-19] MEDS: PREDNISONE PO SCH (09:55)
[2016-08-19] MEDS: LOPRESSOR PO SCH (09:56)
--- NOTE | 2016-08-19 10:57 | PROGRESS NOTE ---
DATE: 08/19/2016 SUBJECTIVE: The patient is sitting up on the side of the bed. She states that she is to go home later today. OBJECTIVE: Vital Signs: Temperature 98.2 degrees, pulse 66, respiratory rate 16, blood pressure 137/42. Intake 600 mL; output 1.9 L. General: Elderly female resting on the side of the bed. She is in no acute distress. HEENT: She is normocephalic, atraumatic. Oral mucosa is moist. Conjunctivae pink. Neck: Supple. She has no JVD. Cardiovascular: She has a regular rate and rhythm. There is no murmur appreciated. Pulmonary: She has equal excursion. She is clear bilaterally today with no increased work of breathing. On room air. Abdomen: Soft, with positive bowel sounds. : Not inspected. She is voiding. Extremities: She has trace to 1+ pretibial edema. No clubbing noted. She is moving all extremities and is ambulatory. Integumentary: Skin is warm and dry otherwise. LAB DATA: Sodium 137, potassium 3.8, CO2 36. BUN 50, creatinine 2.1, albumin 3.8. ASSESSMENT AND PLAN: 1. Acute overlying chronic kidney disease. Her renal function has remained stable since her admission. She is in negative fluid balance. We understand she is to be discharged. We would see her in the office in 2 weeks with labs in 1 week. 2. Electrolytes, acid-base balance. These are stable. She is mildly alkalotic likely secondary to the increased diuretics that she has been on while she has been here. 3. Atrial fibrillation followed by primary cardiology. She underwent transesophageal echocardiography yesterday. Dictated by ASHKAN Johnson for Bora Gonzalez MD cc: MD Luca Bassett MD
--- NOTE | 2016-08-20 03:17 | DISCHARGE SUMMARY ---
ADMISSION DATE: 08/10/2016 DISCHARGE DATE: 08/19/2016 DISCHARGE DIAGNOSES: 1. Acute diastolic congestive heart failure. 2. Chronic obstructive pulmonary disease, with exacerbation. 3. Paroxysmal atrial fibrillation. 4. Chronic renal failure, stage 3. 5. Diabetes mellitus. 6. Hypertension. CONSULTATIONS: Dr. Bora Gonzalez and Dr. Eben Monsivais. OPERATIVE PROCEDURES: GISEL and elective DC cardioversion. HOSPITAL COURSE: This 81-year-old white female had failed outpatient therapy for fluid overload and worsening respiratory status. She was brought in to the hospital and found to be in atrial fibrillation. She was diuresed aggressively, but her increasing creatinine levels warranted evaluation by a renal specialist. Renal ultrasound showed that she really only had 1 functioning kidney. Her GFR was somewhere between 20 and 25. She was still diuresed effectively, with no real increase in her BUN and creatinine. Dr. Monsivais evaluated her echocardiogram from the , which showed reasonable ejection fraction and chamber sizes. She was started on anticoagulation and rhythm control agents, but did not have spontaneous conversion into sinus rhythm. She was brought down to the tin can laborer. A GISEL was performed, which showed no clot. She then underwent DC cardioversion on the first shock, and remained in sinus rhythm throughout the rest of her hospitalization. The patient did require a little bit of prednisone to stabilize her COPD, and she did well with oxygen. During her hospitalization, the patient did suffer a fall, with a broken nose. She had ecchymosis about the eyes at the time of discharge, but this was stable, and he was breathing reasonably well. The patient is discharged home with followup in 1 week. Her new medications include amiodarone, Coumadin, diltiazem, metoprolol. We will see her in followup and recheck a pro time and INR, as well as kidney function. The patient has requested a home health eval. cc: Luca Milton MD [facility]
== END 2016-08-19 13:17 | disposition home health service (06) ==
LOC: DIRADM 09:37 → 3N 10:19 → 3S 08-11 14:45 → 3N 08-14 15:53
PROVIDERS: ADMIT Internal Medicine; ATTEND Internal Medicine